=== PATIENT | male | born 1940 | race Caucasian/White ===

== ENCOUNTER 2017-08-22 16:16 | Observation (INO) | payer MEDICARE, OTHER ==
[~2017-08-22 16:16] MED LIST: NS 0.9% 1000 ML* 1,000 ML IV SCH
[2017-08-22] MEDS ORDERED: Buffered Lidocaine 0.9% SYRIN* 5 ML/SYR SYRINGE INTRADERM ONE (16:46)
--- NOTE | 2017-08-22 17:23 | HP ---
CC: Dr. Arcenio Olmstead* DATE OF ADMISSION: 08/22/2017. HISTORY OF PRESENT ILLNESS: Mr. 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 Mr. Olmstead is diabetic and has been followed by Dr. Olmstead because of decreased renal function. His serum creatinine has been in the vicinity of 5. The patient is been considered as candidate for either peritoneal dialysis or renal transplantation. About four days ago, he went to [facility] complaining of acute left flank and abdominal pain. The impression was that the pain was musculoskeletal. He was discharged home on pain medication. His serum creatinine, however, was noted to have progressed to 7.7. The patient was then evaluated by Dr. Olmstead today. He ordered a noncontrast CT of the abdomen and pelvis which showed left hydronephrosis and proximal hydroureter with a 7 mm calculus in the proximal left ureter at the level of L4. Because of that finding and the acute elevation of his serum creatinine, the patient is admitted for urgent placement of a left ureteral stent. PAST MEDICAL HISTORY, SYSTEM REVIEW AND MEDICATIONS: The patient is diabetic and is maintained on Metformin 500 mg three times per day, Indapamide 2.5 mg daily, Actos 45 mg daily, Glyburide 6 mg twice a day. He has a history of hypertension and hyperlipidemia. He was recently evaluated by Dr. Alok Rosenberg, vacuum technician in [facility]. He had a nuclear stress test which was reported as being normal. I am including the copies of his evaluation in his records. The patient denies any voiding symptoms, having nocturia once or twice, the frequency about every two to three hours. He reports having adequate urinary stream and no feeling of incomplete bladder emptying. He denies any episodes of gross hematuria or urinary tract infections. ALLERGIES: He denies any allergies to medications. PHYSICAL EXAMINATION GENERAL: Pale looking, moderately overweight, white male who is in no acute pain. VITAL SIGNS: Blood pressure 120/76, pulse 73. LUNGS: Clear. HEART: Regular and rhythmic, no murmurs. ABDOMEN: It is soft, there is tenderness in the left flank and the left upper quadrant. The rest of the abdominal exam is normal. LABORATORY DATA: Urine analysis shows +3 blood, negative otherwise. IMPRESSION: 1. 7 mm obstructing calculus in the proximal left ureter with worsening of the renal function. 2. Diabetic nephropathy with end-stage renal disease. 3. Hypertension. 4. Hyperlipidemia. PLAN: Cystoscopy and the urgent placement of left ureteral stent today. I discussed the above plans with the patient and his family. They understand that the procedure is temporary to relieve the obstruction. He will need definitive treatment of the stone at a later date. [id number]/[facility] #: [id number] TAVO
[2017-08-22] MEDS ORDERED: Famotidine IV* 10 MG/ML 2 ML (20 mg) ONE (19:15)
[2017-08-22] MEDS ORDERED: cefTRIAXone(*) 1 GM ADVAN ONE (19:15)
[2017-08-22] MEDS ORDERED: cefTRIAXone VIAL(*) 1,000 MG in NS 0.9% 50 ML* 50 ML IVPB ONE (19:30)
[2017-08-22] MEDS ORDERED: Famotidine IV* 10 MG/ML 2 ML (20 mg) IV ONE (19:30)
[2017-08-22] MEDS: NS 0.9% 1000 ML* 1,000 ML IV SCH ×3 (19:39→22:20)
[2017-08-22] MEDS ORDERED: Iohexol 180 (CONTRAST) 10 ML SDV IV ONE (20:28)
[2017-08-22] MEDS ORDERED: fentaNYL* 50 MCG/ML 2 ML VIAL (100 MCG VIAL) ONE (20:37)
[2017-08-22] MEDS ORDERED: Midazolam* 1 MG/ML 5 ML VIAL (5 MG) ONE (20:38)
[2017-08-22] MEDS ORDERED: KETAMINE HCL* 50 MG/ML 10 ML VIAL ONE (20:38)
[2017-08-22] MEDS ORDERED: PROCHLORPERAZINE INJ 5 MG/ML 2 ML VIAL IV PRN (21:04)
[2017-08-22] MEDS ORDERED: fentaNYL* 50 MCG/ML 2 ML VIAL (100 MCG VIAL) IV PRN (21:04)
[2017-08-22] MEDS ORDERED: Propofol* 10 MG/ML 20 ML BTL IV PUSH ONE (21:09)
[2017-08-22] MEDS ORDERED: Lidocaine 2% PF * 5 ML VIAL ONE (21:09)
[2017-08-22] MEDS ORDERED: PROCHLORPERAZINE INJ 5 MG/ML 2 ML VIAL ONE (21:09)
[2017-08-22] MEDS ORDERED: Ondansetron INJ* 2 MG/ML VIAL ONE (21:09)
[2017-08-23 05:02] LABS: BUN/Creatinine Ratio 8.2 (8-20); Calcium 6.6 mg/dL (8.6-10.3); EGFR African American 8.8 (>60); EGFR Non-African American 6.8 (>60); Potassium 4.2 mmol/L (3.5-5.0)
[2017-08-23] MEDS: NS 0.9% 1000 ML* 1,000 ML IV SCH (05:55)
--- NOTE | 2017-08-23 07:41 | RAD ---
INDICATION: Left ureteral calculus COMPARISONS: CT dated August 22, 2017 TECHNIQUE: Fluoroscopy was provided for a retrograde pyelogram and stent placement. Total fluoroscopy time is: 7 seconds FINDINGS: Spot images demonstrate contrast in the renal collecting system. A ureteral stent is noted. IMPRESSION: FLUOROSCOPY WAS PROVIDED FOR A RETROGRADE PYELOGRAM AND STENT PLACEMENT CPT II Codes: 6045F
[2017-08-23 16:09] LABS: BUN/Creatinine Ratio 8.2 (8-20); Calcium 6.7 mg/dL (8.6-10.3); Potassium 4.6 mmol/L (3.5-5.0)
[2017-08-23 16:24] VITALS: BP 129/63
--- NOTE | 2017-08-23 19:27 | OP ---
CC: Dr. Olmstead OPERATIVE REPORT: DATE OF OPERATION: 08/22/17 DATE OF : 44 SURGEON: Manish Jaimes MD ANESTHESIOLOGIST: Marcelo Mazariegos MD ANESTHESIA: IV sedation with MAC. PRE-OP DIAGNOSES: 1. Left ureteral calculus. 2. Left hydronephrosis due to left ureteral calculus. 3. Chronic renal failure. POST-OP DIAGNOSES: 1. Left ureteral calculus. 2. Left hydronephrosis due to left ureteral calculus. 3. Chronic renal failure. OPERATIVE PROCEDURE: 1. Cystoscopy, left retrograde pyelography. 2. Placement of left ureteral stent (6-American). INDICATIONS: Mr. Olmstead is a 76-year-old white male, who has diabetic nephropathy with a decreased renal function and baseline creatinine of 5. He started having left flank pain about 3 days ago an d the creatinine went up to 7.6. CT of the abdomen and pelvis showed a 7-mm calculus at the left ur eteropelvic junction associated with left hydronephrosis. Because of the above history and finding, the patient is taken to the OR for urgent placement of lef t ureteral stent. PATHOLOGY AT CYSTOSCOPY: The penile and bulbar urethrae looked normal. The prostatic urethra measu red about 2.5 cm in length and there was moderate obstruction by an elevated bladder neck. Examination of the bladder showed normal mucosa. There were no suspicious bladder lesions seen. No calculi or diverticula were noted. The ureteral orifices looked normal. Upon left retrograde pyel ography, there was moderate proximal hydroureteronephrosis. Following placement of the stent, there was a brisk hydronephrotic drip of concentrated urine coming from the left kidney. DESCRIPTION OF PROCEDURE: Under intravenous sedation with the patient in the lithotomy position and after proper scrubbing and draping, cystoscopy was performed. The bladder was carefully inspected and the above findings were noted. A flexible-tip guidewire was then introduced into the left orifice and positioned in the area of the renal pelvis. A 5-American open-ended catheter was then fed on top of the guidewire and positioned i n the proximal ureter. Retrograde pyelography was performed demonstrating the above pathology. A size 6-American stent was then placed over the guidewire with the proximal end coiling in renal pelv is and the distal end coiling inside the bladder. There was a prompt drainage of contrast from the kidney. The cystoscope was removed and a size 16-American Lindo catheter was passed inside the bladder and the balloon inflated with 10 cc of water. The Lindo catheter was placed for monitoring of the urine ou tput and to check for postobstructive diuresis. The patient tolerated the procedure well and left the operating room in good condition. The plan is to obtain a KUB later on. I will decide on the definite treatment of the stone. [id number]/[facility] #: [id number]
[2017-08-23] MEDS ORDERED: ATORVASTATIN 80 MG PO SCH (21:00)
[2017-08-24] MEDS ORDERED: DILTIAZEM HCL 420 MG PO SCH (09:00)
[2017-08-24] MEDS ORDERED: Calcium Citrate TAB* 200 MG PO SCH (09:00)
--- NOTE | 2017-08-24 16:22 | RAD ---
Indication: Stent insertion. Hand Laminator film of the abdomen demonstrates left ureteral stent placement. Contrast is noted throughout the colon. IMPRESSION: Left ureteral stent in appropriate position.
--- NOTE | 2017-08-25 06:20 | DS ---
CC: Dr. Arcenio Olmstead; Dr. Manish Jaimes; Dr. Eula Mantilla* DISCHARGE SUMMARY: DATE OF ADMISSION: 08/22/17 DATE OF DISCHARGE: 08/23/17 ADMISSION DIAGNOSES: 1. Left hydronephrosis. 2. Left nephrolithiasis. 3. Diabetic nephropathy with end-stage renal disease. 4. Hypertension. 5. Hyperlipidemia. DISCHARGE DIAGNOSES: 1. Left hydronephrosis. 2. Left nephrolithiasis. 3. Diabetic nephropathy with end-stage renal disease. 4. Hypertension. 5. Hyperlipidemia. HOSPITAL COURSE: The patient is a 76-year-old gentleman, who presented to the [facility] with a chief complaint of abdominal pain and blood in his urine. The patient was found to have left hydronephrosis and 7-mm calculus in the proximal left ureter. The patient was sent for emergent cystoscopy and had left ureteral stent placed. The patient was monitored over the next day. He is improved dramatically. His pain was resolved. His urine was clear. His kidney function improved slightly and he was stable to go home and follow up with his PCP, account executive healthcare and urologist as an outpatient within the next week. PHYSICAL EXAMINATION: On the date of discharge, well-developed, well-nourished gentleman, sitting up in bed, in no acute distress. Vital Signs: Temperature 98.8 degrees, heart rate 93 beats per minute, respiratory rate 16 breaths per minute, pulse ox 98%, blood pressure 129/63. HEENT: Normocephalic, atraumatic. Pupils equal, round, and reactive to light. Moist mucous membranes. Neck: Supple. No JVD, bruits, palpable thyroid or lymphadenopathy. Chest: Clear to auscultation and percussion bilaterally. Cardiovascular Exam: S1 and S2 appreciated. Abdominal Exam: Positive bowel sounds in all 4 quadrants, soft, nontender, nondistended. Extremities: No cyanosis, clubbing, or edema. +2 pulses bilaterally. Neuro: Alert and oriented x3. Moves all extremities. Skin: No rashes or abnormalities. STUDIES DONE WHILE IN THE HOSPITAL: Retrograde pyelogram, 08/22/17, impression: Fluoroscopy was provided for retrograde pyelogram and stent placement. CT of the abdomen and pelvis, 08/22/17, impression: Left hydronephrosis and hydroureter, 7-mm calculi in the proximal left ureter at proximal L4, cholelithiasis with biliary duct. Abdominal x-ray, 08/23/17, impression: Ureteral stent probably in position. DISCHARGE MEDICATIONS: 1. Pioglitazone 45 mg daily. 2. Tradjenta 5 mg p.o. daily. 3. Lozol 2.5 mg daily. 4. Glyburide 6 mg daily. 5. Enalapril 1 tablet twice daily. 6. Diltiazem CD 120 mg daily. 7. Calcium citrate 400 mg daily. 8. Atorvastatin 80 mg at bedtime. Please note, the patient was on metformin with his kidney function, I have discontinued it and told him to discuss with Dr. Olmstead. He has been on it for some time and I assumed that the patient was still on it because he had no adverse consequences despite his renal function. DISCHARGE PLAN: He will be discharged to home and follow up with his PCP, his Nephrology, and urologist in 1 week. TIME SPENT: Over 45 minutes were spent on this discharge, more than 25 minutes of which was spent in direct [id number] contact with the patient in evaluation , physical exam, counseling, and coordination of care. [id number]/[facility] #: [id number] MTDKristen
== END 2017-08-23 18:15 | disposition home or self-care (01) ==
LOC: SSU 16:19
PROVIDERS: ADMIT Internal Medicine; ATTEND Urology
PROC: BT1FZZZ Fluoroscopy of Left Kidney, Ureter and Bladder (ICD-10-PCS; 2017-08-22)
PROC: 0WHR8YZ Insertion of Other Device into Genitourinary Tract, Via Natural or Artificial Opening Endoscopic (ICD-10-PCS; 2017-08-22)
PROC: 0T778DZ Dilation of Left Ureter with Intraluminal Device, Via Natural or Artificial Opening Endoscopic (ICD-10-PCS; principal; 2017-08-22 20:00)
DX: N13.2 Hydronephrosis with renal and ureteral calculous obstruction (principal); I12.0 Hypertensive chronic kidney disease with stage 5 chronic kidney disease or end stage renal disease; E11.22 Type 2 diabetes mellitus with diabetic chronic kidney disease; N18.6 End stage renal disease; E78.5 Hyperlipidemia, unspecified; Z79.899 Other long term (current) drug therapy
CPT/HCPCS: 36415; 74000; 74420; 80048; 96374; 96375; A9270-GY; C1876; G0378; J0696; J0780; J2250; J2405; J2704; J3010

== ENCOUNTER 2018-01-19 04:39 | Emergency (ER) | payer MEDICARE, OTHER ==
--- OUTSIDE RECORDS SUMMARY | 2018-01-19 04:58 | XMS REPORT ---
:1940 External Reference #:[id number] Author Organization [employer] Address [address] [address] Phone [phone] Care Team Providers Name Role Phone Jamal Larkin M.D. Care Team Information Special Education Administrator Unavailable Payers Type Date Identification Numbers Payment Provider Subscriber Medicare Primary Policy Number: [id number] Medicare Wilton Olmstead PayID: [id number] [address] [place] [address] [facility] Part [facility] Policy Number: [id number] For Life Wilton Olmstead PayID: [id number] [address] [place] [address] Problems Description No Information Social History Type Date Description Comments Smoking Patient is a former smoker Allergies, Adverse Reactions, Alerts Date Description Reaction Status Severity Comments 12/29/2017 Vicodin active 12/28/2017 NKDA inactive Medications Medication Date Status Form Strength Qnty SIG Indications Ordering Provider Calcitriol / Active Capsules 0.25mcg 1 by mouth Unknown 0000 every day Actos / Active Tablets 45mg 1 by mouth Unknown 0000 every day Diltiazem / Active Caps ER 420mg 1 by mouth Unknown HCL ER 0000 24HR every day Enalapril / Active Tablets 20mg 2 by mouth Unknown Maleate 0000 every day Glyburide / Active Tablets 6mg take one Unknown 0000 tablet by mouth twice daily before breakfast and dinner Indapamide / Active Tablets 2.5mg 1 tab daily Unknown 0000 Lipitor / Active Tablets 80mg 1 by mouth Unknown 0000 every night at bedtime Tradjenta / Active Tablets 5mg 1 by mouth Unknown 0000 every day Humalog / Active Solution 100Unit/ML Unknown 0000 Citracal / Active Tablets 400mg daily Unknown Plus 0000 Feraheme / Hx Solution 510mg/17ML 17 Unknown 0000 milliliters iv x1, repeat in 1 week x1 Ferrous / Hx Tablets 325(65Fe) take 1 tablet Unknown Sulfate 0000 mg once daily. Metformin / Hx Tablets 500mg 2 by mouth Unknown HCL 0000 twice a day Norvasc / Hx Tablets 2.5mg 1 by mouth Unknown 0000 every day Vital Signs Date Vital Result Comment 12/29/2017 Height 69 inches 5'9" Weight 187.00 lb Heart Rate 76 /min BP Systolic 136 mmHg BP Diastolic 72 mmHg Respiratory Rate 16 /min Body Temperature 97.8 F BMI (Body Mass Index) 27.6 kg/m2 Results Description No Information Procedures Description No Information Encounters Type Date Location Provider CPT E/M Dx [facility] Jamal Larkin M.D. 73413 N20.0 2:54p Hospitalists N17.9 N18.5 Plan of Care Future Appointment(s):02/09/2018 10:30 am - Naun Yan MD at [facility]01/19/2018 1:00 pm - JAI Gonzalez at [facility]02/01/2018 7:30 am - Naun Yan MD at [facility]12/29/2017 - Naun Yan MDN18.6 End stage renal diseaseFollow up:operating room
--- OUTSIDE RECORDS SUMMARY | 2018-01-19 04:59 | XMS REPORT ---
:1940 External Reference #:[id number] [facility], Address [address] [place] [address] Phone [phone] Care Team Providers Name Role Phone Eula Mantilla M.D. Primary Care Physician Unavailable Payers Type Date Identification Numbers Payment Provider Subscriber Medicare Primary Policy Number: [id number] Medicare [place] PayID: [id number] [address] [place] [address] Commercial Policy Number: [id number] [facility] Claims [place] PayID: [id number] [address] [place] [address] Problems Date Description Provider Status Onset: 02/24/2012 Impacted cerumen Arcenio Mayfield MD Active Onset: 11/28/2013 Tibialis tendinitis Terry Noonan DPM Active Onset: 03/02/2017 Chronic kidney disease Eula Mantilla M.D. Active Onset: 03/02/2017 Type II diabetes mellitus Eula Mantilla M.D. Active uncontrolled Onset: 03/02/2017 Essential hypertension Eula Mantilla M.D. 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 Cigarette Use Former Cigarette Smoker Smokeless Tobacco Never Used Smokeless Tobacco ETOH Use Denies alcohol use ETOH Use Has consumed alcohol in the past Recreational Drug Use Denies Drug Use Smoking 02/24/2012 Patient is a former smoker Quit age 28 Allergies, Adverse Reactions, Alerts Date Description Reaction Status Severity Comments 04/04/2009 NKDA active Medications Medication Date Status Form Strength Qnty SIG Indications Ordering Provider BD Pen 11/17/ Active Misc 32G X 4 mm 300uni 3-4 daily Veronique A Needle/Afsaneh/U 2017 ts injections Galarza, ltra Fine/32G 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 2014 Tablet Daily MD Angela Freestyle 06/30/ Active Strips 100uni three times Roe V. Lite Test 2014 ts a day checks MD Yazmin Millerstyle 06/30/ Active Misc 100uni three times Veronique A Lancets 2014 a day checks SHAHBAZ Galarza Glynase 05/19/ Active Tablets 6mg 60tabs 1 tab by Roe Villeda 2014 mouth twice Zyg, a day with MD meals Diltiazem HCL / Active Caps ER 420mg once daily Unknown ER 0000 24HR Lipitor / Active Tablets 80mg one daily Unknown 0000 qhs Enalapril / Active Tablets 20mg 2 times per Unknown Maleate 0000 day Indapamide / Active Tablets 2.5mg one tablet Unknown 0000 daily Actos / Active Tablets 45mg 90tabs Take One Roe V. Tablet By Angela, Mouth Every Day Citracal / Active Tablets 315-250mg- 1 by mouth Unknown Maximum 0000 Unit every day Calcitriol 04/20/ Hx Capsules 0.25mcg 60caps 2 tablets by Roe Villeda 2016 - mouth every Gayathrimont, 05/02/ day 2016 Glynase 09/14/ Hx Tablets 1.5mg 90tabs 1 tab po Q Roe Villeda 2015 - PM with the Angela, 03/01/ supper meal 2016 Amlodipine 05/24/ Hx Tablets 5mg 30tabs 1 by mouth Reo Villeda Besylate 2015 - every day Angela, 03/01/ MD Madrigal Micronized 05/19/ Hx Tablets 6mg 180tab 1 tablet Roe Villeda Glyburide 2014 - s twice a day Angela, 03/01/ with meals 2017 Voltaren 04/18/ Hx Gel 1% 5tubes apply as 726.10 Lalo Vital 2009 - directed Perez, 04/18/ M.D. 2008 Voltaren 04/18/ Hx Gel 1% 100gra apply 2 Lalo Vital 2008 - ms grams to Chris, M.D. 2010 3x/day Metformin HCL /00/ Hx Tablets 500mg 270tab 2 tablets by [facility]oe [facility]. 0000 [facility] 2017 1 tablet by mouth in the PM Glynase /00/ Hx Tablets 6mg Unknown - 2014 Viagra /00/ Hx Tablets 100mg prn Unknown - 2014 Doxycycline / Hx Caps DR 100mg 20caps 1/2 po qd Unknown Hyclate 0000 - Part 2014 Glyburide // Hx Unknown - 2014 Micronized / Hx Tablets 6mg 180tab 1 tablet Roe V. Glyburide 0000 - s twice a day [facility], 05/19/ with meals 2014 Iron 00/ Hx Tablets 325(65Fe) 1 by mouth Unknown 0000 - mg once a day 2016 Medications Administered in Office Medication Date Status Form Strength Qnty SIG Indications Ordering Provider Mike Administered Injection Veronique A Injection 017 SHAHBAZ Galarza Denosumab, 1 MG Immunizations CPT Code Status Date Vaccine Lot # [id number] Given 08/04/2017 Hepatitis B Vaccine Adult [id number] Given 06/29/2017 Hepatitis B Vaccine Adult [id number] Given 03/02/2017 Tetanus, Diphtheria Toxoids/Acellular Pertussis [id number] Vaccine 7 Or > Vital Signs Date Vital Result Comment 11/14/2017 Weight 191.00 lb Weight in kg's 86.638 BMI (Body Mass Index) 29.9 kg/m2 BP Systolic 130 mmHg BP Diastolic 58 mmHg Heart Rate 62 /min Height 67 inches 5'7" Height in cm's 170.2 cm O2 % BldC Oximetry 8.4 % done in office today 07/15/2017 Weight 194.25 lb Weight in kg's 88.112 BMI (Body Mass Index) 30.4 kg/m2 BP Systolic 148 mmHg BP Diastolic 70 mmHg Height 67 inches 5'7" Height in cm's 170.2 cm Hemoglobin A1C 6.8% done in office today 06/02/2017 Weight 193.25 lb Weight in kg's 87.658 BMI (Body Mass Index) 30.3 kg/m2 BP Systolic 132 mmHg BP Diastolic 60 mmHg Heart Rate 79 /min Respiratory Rate 18 /min Height 67 inches 5'7" Height in cm's 170.2 cm O2 % BldC Oximetry 96 % 05/30/2017 Weight 187.00 lb Weight in kg's 84.823 BMI (Body Mass Index) 29.3 kg/m2 BP Systolic 150 mmHg BP Diastolic 80 mmHg Heart Rate 82 /min Respiratory Rate 20 /min Height 67 inches 5'7" Height in cm's 170.2 cm 04/05/2017 Weight 193.00 lb Weight in kg's 87.545 BMI (Body Mass Index) 30.2 kg/m2 BP Systolic 134 mmHg BP Diastolic 72 mmHg Heart Rate 83 /min Respiratory Rate 18 /min Height 67 inches 5'7" Height in cm's 170.2 cm O2 % BldC Oximetry 98 % Hemoglobin A1C 7.5% done in office today 03/24/2017 Weight 190.00 lb Weight in kg's 86.184 BMI (Body Mass Index) 28.9 kg/m2 BP Systolic 146 mmHg BP Diastolic 58 mmHg Heart Rate 92 /min Respiratory Rate 16 /min Height 68 inches 5'8" Height in cm's 172.7 cm O2 % BldC Oximetry 98 % Ra 03/02/2017 Weight 187.00 lb Weight in kg's 84.823 BMI (Body Mass Index) 28.4 kg/m2 BP Systolic 142 mmHg BP Diastolic 60 mmHg Heart Rate 90 /min Body Temperature 98.3 F Respiratory Rate 18 /min Height 68 inches 5'8" Height in cm's 172.7 cm O2 % BldC Oximetry 100 % 12/13/2016 Weight 192.00 lb Weight in kg's 87.091 BMI (Body Mass Index) 29.2 kg/m2 BP Systolic 138 mmHg BP Diastolic 66 mmHg Heart Rate 88 /min Body Temperature 97.4 F Respiratory Rate 18 /min Height 68 inches 5'8" Height in cm's 172.7 cm O2 % BldC Oximetry 98 % 09/14/2016 Weight 194.50 lb Weight in kg's 88.225 BMI (Body Mass Index) 30.0 kg/m2 BP Systolic 128 mmHg BP Diastolic 78 mmHg Heart Rate 76 /min Height 67.5 inches 5'7.50" Height in cm's 171.4 cm Hemoglobin A1C 7.2% 05/24/2016 Weight 195.50 lb Weight in kg's 88.679 BMI (Body Mass Index) 30.2 kg/m2 BP Systolic 126 mmHg BP Diastolic 74 mmHg Heart Rate 76 /min Height 67.5 inches 5'7.50" Height in cm's 171.4 cm Hemoglobin A1C 7.2% 01/20/2016 Weight 193.38 lb Weight in kg's 87.715 BMI (Body Mass Index) 30.3 kg/m2 BP Systolic 128 mmHg BP Diastolic 73 mmHg Heart Rate 72 /min Height 67 inches 5'7" Height in cm's 170.2 cm Hemoglobin A1C 7.0% 09/04/2015 Weight 193.00 lb Weight in kg's 87.545 BMI (Body Mass Index) 29.8 kg/m2 BP Systolic 128 mmHg BP Diastolic 62 mmHg Heart Rate 68 /min Height 67.5 inches 5'7.50" Height in cm's 171.4 cm Hemoglobin A1C 7.2% 06/05/2015 Hemoglobin A1C 8.5% 06/05/2015 Weight 193.00 lb Weight in kg's 87.545 BP Systolic 124 mmHg BP Diastolic 62 mmHg Heart Rate 88 /min 04/02/2015 Weight 198.00 lb Weight in kg's 89.813 BMI (Body Mass Index) 30.6 kg/m2 BP Systolic 142 mmHg BP Diastolic 64 mmHg Heart Rate 80 /min Height 67.5 inches 5'7.50" actual Height in cm's 171.4 cm Hemoglobin A1C 8.4% 10/28/2014 BP Systolic 136 mmHg BP Diastolic 66 mmHg Heart Rate 72 /min Respiratory Rate 20 /min 11/28/2013 BP Systolic 138 mmHg BP Diastolic 60 mmHg Heart Rate 66 /min Respiratory Rate 15 /min 03/05/2013 Weight 204.00 lb Weight in kg's 92.534 BP Systolic 128 mmHg BP Diastolic 78 mmHg Heart Rate 72 /min Respiratory Rate 16 /min 02/24/2012 Weight 196.00 lb Weight in kg's 88.906 BP Systolic 132 mmHg BP Diastolic 64 mmHg Heart Rate 62 /min Respiratory Rate 18 /min Results Description No Information Procedures Date CPT Code Description Status 06/16/2017 58337 Colonoscopy W/Biopsy Completed 04/20/2017 68759 Electrocardiogram Complete With At Least 12 Completed Leads/Interprt/Report 04/05/2017 91059 Chemotherpy Admin Subcutaneous/Im Non-Hormonal Completed Anti-Neoplastic 06/05/2015 04242 Collection Of Capillary Blood Specimen (Finger, Heel, Completed Ear Stick) 04/02/2015 67586 Collection Of Capillary Blood Specimen (Finger, Heel, Completed Ear Stick) 10/28/2014 51149 Comprehensive Audiogram (29134 And 54216 Combined) Completed 10/28/2014 46430 Tympanometry & Reflex Threshold Measurements Completed 03/05/2013 02862 Removal Impacted Cerumen One/Both Ears Using Completed Instrumentation 04/04/2009 83606 X-Ray Shoulder Complete Completed Encounters Type Date Location Provider CPT E/M Dx Office Visit 07/15/2017 [facility] Roe Miller, 61798 E11.65 9:00a & Endocrinology N18.9 I10 Office Visit 06/02/2017 1:40p [facility] Eula Mantilla M.D. 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 54531 N18.9 E11.65 I10 M81.0 Z23 Office Visit 12/13/2016 10:40a [facility] SUZANNE Blunt 07448 N18.9 M94.0 S27.802A Office Visit 09/14/2016 3:45p [facility] Roe Miller, 67781 E11.65 Diabetes & Endocrinology I10 Office Visit 05/24/2016 2:45p [facility] Roe Miller, 48796 E11.65 Diabetes & Endocrinology E78.0 E66.09 Z68.30 Z71.3 Office Visit 01/20/2016 1:30p [facility] Roe Miller, 11664 E11.65 Diabetes & Endocrinology E78.0 I10 Office Visit 09/04/2015 12:45p [facility] Roe Miller, 56968 E11.65 Diabetes & Endocrinology E78.0 I10 Office Visit 06/05/2015 11:45a [facility] Roe Miller, 24527 250.02 Diabetes & Endocrinology Office Visit 04/02/2015 9:00a [facility] Roe Miller, 72187 250.02 Diabetes & Endocrinology 278.00 Office Visit 10/28/2014 2:45p [facility] [address] 389.9 380.4 Office Visit 11/28/2013 2:30p [facility] Terry Noonan, 12221 726.72 Specialists-Podiatry DPM Office Visit 02/24/2012 2:30p [facility] Arcenio Loredo 07986 380.4 Chaparro GLOVER Office Visit 06/06/2009 3:00p [facility] Lalo Perez, 11288 726.10 Specialists MStephie Office Visit 04/18/2009 3:00p [facility] Lalo Perez, 91591 726.10 Specialists Angelita Office Visit 04/04/2009 3:15p [facility] Lalo Perez, 36581 726.10 Specialists MStephie Plan of Care Future Appointment(s):02/14/2018 3:15 pm - Roe Miller MD at [facility] Diabetes & Hrbottcqebstu40/28/2018 1:00 pm - Apc Nurse Schedule at [facility]14/2017 - Roe Miller MDE11.65 Type 2 diabetes mellitus with hyperglycemiaComments:- I recommended starting Humalog insulin 8 units at the supper meal- I reviewed the use of a Humalogpen and the injection process- I will continue his oral diabetic medication regimen- He wants to continue his metformin understanding the contraindication with his kidney function and risk of lactic acidosis- I reviewed a diabetic diet with him at length and the need for regular exercise to avoid weight gain- I encouraged regular follow up with his eye doctors for routine eye screening- I encourageddaily self-foot checks for the develop of blisters, ulcers, or foot lesions- I asked to be called with any recurrent hyperglycemia or hypoglycemia - I asked him to get me sugars to review in the next 5-7 days- I will see him back in 3-4 [id number] Essential (primary) hypertensionComments:- Goal for blood pressure is < zx=826/80
[2018-01-19] MEDS ORDERED: Morphine INJ* 10 MG/ML 1 ML CARPUJECT IV ONE (05:06)
[2018-01-19] MEDS ORDERED: Ondansetron INJ* 2 MG/ML VIAL IV ONE (05:06)
[2018-01-19] MEDS ORDERED: NS 0.9% 1000 ML* 1,000 ML IV ONE (05:06)
[2018-01-19 05:31] LABS: ABS Basophils 0.1 10^3/ul (0-0.2); ABS Eosinophils 0.2 10^3/ul (0-0.6); ABS Lymphocytes 0.9 10^3/ul (1.0-4.8); ABS Monocytes 0.5 10^3/ul (0-0.8); ABS Neutrophils 8.2 10^3/ul (1.5-7.7); ABS Nucleated RBC 0 10^3/ul; Eosinophil % 1.8 % (0-6); Hematocrit 24 % (42-52); Hemoglobin 8.1 g/dl (14.0-18.0); Mean Corpuscular HGB Conc 34 g/dl (31-36); Mean Corpuscular Hemoglobin 32 pg (27-31); Mean Corpuscular Volume 96 fL (80-94); Mean Platelet Volume 7.9 um3 (7.4-10.4); Nucleated Red Blood Cells % 0; Platelet Count 160 10^3/ul (150-450); Red Blood Count 2.52 10^6/ul (4.0-5.4); Red Cell Distribution Width 14 % (10.5-15); White Blood Count 9.8 10^3/ul (3.5-10.8)
[2018-01-19 05:42] LABS: INR 0.96 (0.77-1.02)
[2018-01-19 05:47] LABS: EGFR Non-African American 7.8 (>60)
--- NOTE | 2018-01-19 06:45 | ED ---
Nuria Brunson Rebecca, scribed for Agnes Schmitt MD on 01/19/18 at 0504 . Abdominal Pain/Male - HPI Summary HPI Summary: Pt is a 77 y/o M who presents to ED c/o RLQ abdominal pain. Sx began this morning at approximately 0030 and have been constant and gradually worsening since onset. Pain is currently moderate, ranked 4/10 and does not radiate to the back. Sx aggravated and alleviated by nothing. Denies fever, decreased appetite, vomiting and dizziness. Last BM at 0300 which was smaller than usual and slightly dark than baseline. PMHx kidney stones - current pain is not similar to the pain associated with kidney stones. - History of Current Complaint Chief Complaint: EDAbdPain Stated Complaint: LOWER ABD PAIN Time Seen by Provider: 01/19/18 04:49 Hx Obtained From: Patient Onset/Duration: Lasting Hours, Still Present Severity Currently: Moderate Pain Intensity: 4 Pain Scale Used: 0-10 Numeric Location: Discrete At: RLQ Radiates: No Aggravating Factor(s): Nothing Alleviating Factor(s): Nothing Associated Signs And Symptoms: Negative: Fever, Decreased Appetite, Vomiting - Allergies/Home Medications Allergies/Adverse Reactions: Allergies Allergy/AdvReac Type Severity Reaction Status Date / Time hydrocodone Allergy Nausea And Verified 01/19/18 04:52 Vomiting PMH/Surg Hx/FS Hx/Imm Hx Endocrine/Hematology History: Reports: Hx Diabetes, Hx Anemia - iron deficiency , had an infusion Cardiovascular History: Reports: Hx Coronary Artery Disease, Hx Hypertension History: Reports: Hx Chronic Renal Failure - N stage renal disease, Hx Kidney Stones, Other Problems/Disorders - on renal transplant list, not active, needs cardiac cath first Denies: Hx Dialysis - waiting for dialysis or tranplant Sensory History: Reports: Hx Contacts or Glasses - glasses Denies: Hx Hearing Aid Opthamlomology History: Reports: Hx Contacts or Glasses - glasses - Surgical History Surgery Procedure, Year, and Place: tonsillectomy at age 8. cystoscopy, left stent jul 2017 - [facility] [place] Hx Anesthesia Reactions: No Infectious Disease History: No Infectious Disease History: Denies: Traveled Outside the [place] in Last 30 Days - Family History Known Family History: Negative: Hypertension - Social History Alcohol Use: Rare Substance Use Type: Reports: None Smoking Status (MU): Former Smoker Type: Cigarettes Amount Used/How Often: 1 ppd for 11 yrs Have You Smoked in the Last Year: No Review of Systems Negative: Fever Positive: Abdominal Pain, Other - NEG: decreased appetite. Negative: Vomiting Neurological: Other - NEG: Dizziness All Other Systems Reviewed And Are Negative: Yes Physical Exam - Summary Physical Exam Summary: ~ VITAL SIGNS: Reviewed. GENERAL: ~Patient is a well-developed and nourished male who is lying comfortable in the stretcher. Patient is not in any acute respiratory distress. HEAD AND FACE: No signs of trauma. No ecchymosis, hematomas or skull depressions. No sinus tenderness. EYES: PERRLA, EOMI x 2, No injected conjunctiva, no nystagmus. EARS: Hearing grossly intact. Ear canals and tympanic membranes are within normal limits. MOUTH: Oropharynx within normal limits. NECK: Supple, trachea is midline, no adenopathy, no JVD, no carotid bruit, no c- spine tenderness, neck with full ROM. CHEST: Symmetric, no tenderness at palpation LUNGS: Clear to auscultation bilaterally. No wheezing or crackles. CVS: Regular rate and rhythm, S1 and S2 present, no murmurs or gallops appreciated. ABDOMEN: Soft, RLQ tenderness. No signs of distention. No rebound no guarding, and no masses palpated. Bowel sounds are normal. EXTREMITIES: FROM in all major joints, no edema, no cyanosis or clubbing. NEURO: Alert and oriented x 3. No acute neurological deficits. Speech is normal and follows commands. SKIN: Dry and warm. Pale. RECTAL: Rectum is empty. No hemorrhoids or masses palpated. Stool is dark brown and was sent for Hemoccult. Triage Information Reviewed: Yes Vital Signs On Initial Exam: Initial Vitals Temp Pulse Resp BP Pulse Ox 97.8 F 74 16 127/54 99 01/19/18 04:40 01/19/18 04:40 01/19/18 04:40 01/19/18 04:40 01/19/18 04:40 Vital Signs Reviewed: Yes Diagnostics - Vital Signs Vital Signs Temp Pulse Resp BP Pulse Ox 01/19/18 04:40 97.8 F 74 16 127/54 99 - Laboratory Result Diagrams: 01/19/18 05:12 01/19/18 05:12 Lab Statement: Any lab studies that have been ordered have been reviewed, and results considered in the medical decision making process. Abdominal Pain Fem Course/Dx - Course Assessment/Plan: Pt is a 77 y/o M who presents to ED c/o constant and worsening RLQ abdominal pain since this morning at approximately 0030. Pain is currently moderate, ranked 4/10 and does not radiate to the back. Denies fever, decreased appetite, vomiting and dizziness. Last BM at 0300 which was smaller than usual and slightly dark than baseline. PMHx kidney stones - current pain is not similar to the pain associated with kidney stones. In the ED course, pt was given morphine, zofran and fluids. Bloodwork was done and a hemocult sent. Pt will be signed out to Dr. Swenson, pending disposition, awaiting CT Abd/Pel and UA. Allergy noted. - Diagnoses Provider Diagnoses: Abdominal pain Discharge - Sign-Out/Discharge Documenting (check all that apply): Sign-Out Patient Signing out patient TO: Terry Swenson - Awaiting CT Abd/Pel and UA - Discharge Plan Condition: Stable Referrals: Eula Mantilla MD [Primary Care Provider] - The documentation as recorded by the Nuria barcenas Rebecca accurately reflects the service I personally performed and the decisions made by , Agnes Schmitt MD.
[2018-01-19] MEDS ORDERED: Metoclopramide IV* 5 MG/ML 2 ML VIAL IV ONE (07:50)
--- NOTE | 2018-01-19 08:09 | RAD ---
CLINICAL HISTORY: Right-sided abdominal pain COMPARISON: Similar CT examination August 22, 2017 TECHNIQUE: Noncontrast CT examination of the abdomen and pelvis from the lung bases through the initial tuberosities. FINDINGS: VISUALIZED LUNG BASES: The visualized lung bases are grossly clear. There is no pleural effusion. ABDOMEN AND PELVIS: Evaluation of the solid organs and vasculature is limited without intravenous contrast. The liver, spleen, pancreas and adrenal glands are grossly normal in appearance. The gallbladder is normal. Bilaterally there are no renal calculi or other suspicious renal masses. There is a mild degree of bilateral perinephric stranding, more severe on the right than the left. There is a slight degree of hydronephrosis appreciated on the right side is not seen in the left. The proximal right ureter is top normal in diameter measuring 8 mm in width. There are no calcifications seen in either ureter or in the urinary bladder. The oral contrast has progressed only as far as the proximal small bowel which prevents more thorough evaluation of the distal small bowel and colon. The small and large bowel are not distended. The normal-appearing appendix with gas in the lumen is identified in the right lower quadrant (axial image 55 and coronal image 41) measuring 6 mm in diameter. There is no definite periappendiceal inflammatory changes characteristic of appendicitis, early or otherwise. There are diverticula beginning at the cecum and running throughout the length of the colon. There is no definite focal bowel wall thickening characteristic of focal diverticulitis. There is no free air in the abdomen or drainable fluid collection around the colon. There is no gross retroperitoneal or mesenteric lymphadenopathy. The pelvic viscera is normal in appearance. The abdominal aorta and iliac arteries are normal in course and diameter. Degenerative changes include multilevel loss of intervertebral disc height involving the lower thoracic and lumbar spine.There are no sinister bone lesions. IMPRESSION: 1. There is a very mild degree of right-sided hydronephrosis but no renal calculi or other obstructive entities are identified. Potentially this appearance could be due to prior recent passage of a renal stone. 2. Normal-appearing appendix. 3. Cecal diverticulosis without definite bowel wall thickening to indicate acute diverticulitis.
[2018-01-19 09:54] LABS: Urine Appearance Clear; Urine Blood 3+ (Negative); Urine Color Straw; Urine Ketones Negative (Negative); Urine Protein 1+(30 mg/dL) (Negative); Urine Specific Gravity 1.011 (1.010-1.030); Urine Urobilinogen Negative (Negative)
--- NOTE | 2018-01-19 11:38 | ED ---
Mariela Brunson Thomas, scribed for Terry Swenson MD on 01/19/18 at 1031 . Progress - Progress Note Progress Note: The patient is a sign out from Dr. Schmitt at shift change, pending CT Abd/Pel CT Abd/Pel Interpreted by radiologist. Impression: 1. There is a very mild degree of right-sided hydronephrosis but no renal calculi or other obstructive entities are identified. Potentially this appearance could be due to prior recent passage of a renal stone. 2. Normal-appearing appendix. 3. Cecal diverticulosis without definite bowel wall thickening to indicate acute diverticulitis. Dr. Swenson has reviewed this report. Course/Dx - Course Course Of Treatment: Mr. Olmstead was feeling much better when I saw him. Initially he got nauseated after the PO contrast for the CT which has happened to him before. It is unclear whether he just passed a stone or if it was missed. I spoke with Dr. Olmstead secondary to his CRF and he felt that the patient could go home and F/u with Dr. Olmstead early next week. I gave him pain medications and nausea medications. - Diagnoses Provider Diagnoses: Flank pain Discharge - Sign-Out/Discharge Documenting (check all that apply): Discharge, Receiving Sign-Out Receiving patient FROM: Agnes Schmitt - Discharge Plan Condition: Stable Disposition: HOME Prescriptions: Ondansetron ODT TAB* [Zofran Odt TAB*] 4 mg PO Q6H PRN #20 tab.odt PRN Reason: Nausea/Vomiting oxyCODONE/Acetamin 5/325 MG* [Percocet 5/325 TAB*] 1 tab PO Q6H PRN #20 tab MDD 4 PRN Reason: Pain Patient Education Materials: Flank Pain (ED) Referrals: Arcenio Olmstead MD [Medical Doctor] - 6 Days Additional Instructions: Follow up with Dr. Olmstead early next week. Return to the emergency department for any new or worsening symptoms. - Billing Disposition and Condition Condition: STABLE Disposition: HOME The documentation as recorded by the Mariela barcenas Thomas accurately reflects the service I personally performed and the decisions made by me, Terry Swenson MD.
[2018-01-19 11:48] VITALS: BP 126/40
== END 2018-01-19 11:44 | disposition home or self-care (01) ==
LOC: ED 04:39
DX: R10.84 Generalized abdominal pain (principal)
CPT/HCPCS: 36415; 74176; 80053; 81003; 81015; 82150; 82270; 83605; 83690; 83735; 85025; 85610; 85730; 86140; 86850; 86900; 86901; 87086; 96374; 96375; 99282; J2270; J2405; J2765

== ENCOUNTER 2018-02-01 06:00 | Day surgery (SDC) | payer MEDICARE, OTHER ==
--- NOTE | 2018-01-24 18:12 | HP ---
CC: Dr. Olmstead * PREOPERATIVE HISTORY AND PHYSICAL: DATE OF ADMISSION: 02/01/18 This patient is scheduled for same-day surgery admission by Dr. Yan on 02/01/18. ATTENDING SURGEON: Dr. Naun Yan * (dictated by Deborah García NP). CHIEF COMPLAINT: End-stage renal disease. HISTORY OF PRESENT ILLNESS: The patient is a pleasant 77-year-old male referred to Dr. Yan by Dr. Olmstead for peritoneal dialysis catheter placement. The patient has a history of chronic kidney disease secondary to diabetic nephropathy. Unfortunately, his renal function is deteriorating, his serum creatinine on 01/23/18 was 7.8. He has researched both hemodialysis and peritoneal dialysis; his is familiar with peritoneal dialysis, so he has opted for placement of peritoneal dialysis catheter. Dr. Yan has examined the patient and has recommended laparoscopic peritoneal dialysis catheter placement as a same day surgery, he has described the nature of the surgical procedure, the relevant risks and benefits and today, I reviewed the typical postoperative care and recovery. The patient has had a chance to ask questions and stated that he understands the information and is satisfied with the answers given to his questions. He will sign surgical consent on the day of surgery. PAST MEDICAL HISTORY: 1. Type 2 diabetes. 2. Hypertension. 3. Hyperlipidemia. 4. Chronic kidney disease. PAST SURGICAL HISTORY: 1. Cystoscopy and ureteral stent and laser lithotripsy for obstructing left ureteral calculi, August 2017. 2. Tonsillectomy, age 8. MEDICATIONS: 1. Diltiazem 420 mg daily. 2. Lipitor 80 mg daily. 3. Glynase 6 mg b.i.d. 4. Enalapril 20 mg b.i.d. 5. Actos 45 mg daily. 6. Indapamide 2.5 mg daily. 7. Tradjenta 5 mg daily. 8. Calcitriol 0.25 mcg daily. 9. Humalog insulin 6 units daily at dinner. 10. Citracal 400 mg daily. 11. Zofran 4 mg p.r.n. nausea. 12. Percocet 5/325 mg 1 tablet q.4 p.r.n. pain, which he is not currently using. ALLERGIES: There is a question of unspecified reaction to VICODIN, he does tolerate OXYCODONE. FAMILY HISTORY: No known anesthesia complications, bleeding tendencies or clotting disorders. Both parents had diabetes. The patient's father had a history of hypertension and heart disease. SOCIAL HISTORY: He is ; he quit smoking in 1969. 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 He denies the use of substances. REVIEW OF SYSTEMS: Constitutional: He was in the [facility] emergency room, 01/19/18, complaining of right-sided flank and lower abdominal pain; he underwent CAT scan of the abdomen and pelvis, which revealed mild right -sided hydronephrosis, but no evidence of obstruction or calculi and no evidence of appendicitis. He was treated with morphine and was discharged and has been essentially pain free since then. He denies any current fever or chills or change in his weight. Endocrine: Type 2 diabetes. Blood sugar in the morning today was 83 and is in the 130s at bedtime. No thyroid disease. Hematologic: No easy bruising or bleeding. No history of blood transfusions. Respiratory: He reports the onset of postnasal drip last evening, but denies any chronic cough or dyspnea on exertion. Cardiovascular: No anginal chest pain or palpitations. He underwent a nuclear stress test in [place], which he states was essentially normal; if he proceeds to kidney transplant, he will require cardiac catheterization. Gastrointestinal: No nausea, vomiting, chronic diarrhea, or constipation. No GI bleeding. Genitourinary: He is still able to urinate and denies any dysuria, frequency, or urgency. Musculoskeletal: Denies any pain. Neurologic: No headache or blurred vision. No areas of focal weakness or numbness. General: No history of anesthesia complications. No history of deep vein thrombosis or pulmonary embolism. PHYSICAL EXAMINATION GENERAL SURVEY: The patient is a 77-year-old male, well developed, well nourished, in no acute distress. VITAL SIGNS: Height 69 inches, weight 194 pounds, body mass index 28.6. Blood pressure 140/74, pulse 74 and regular, respiratory rate 16, temperature 97.2 tympanic. HEENT: Benign. NECK: Supple. No cervical lymphadenopathy. LUNGS: Breath sounds bilaterally clear and equal. HEART: Regular rate and rhythm. No murmurs or rubs appreciated. ABDOMEN: Active bowel sounds. Soft, nondistended, minimally tender with mild rebound in the right lower quadrant. No guarding. No obvious masses, organomegaly, or evidence of ventral hernia. BACK: No CVA tenderness. GENITALIA EXAM: Deferred. RECTAL EXAM: Deferred. EXTREMITIES: Warm, mild bilateral ankle edema, no pitting. NEUROLOGIC: Alert and oriented x3. Steady gait. SKIN: Sallow, warm and dry. IMPRESSION: End-stage renal disease secondary to diabetic nephropathy. PLAN: Same-day surgery admission to Dr. Yan's service for laparoscopic placement of peritoneal dialysis catheter, on 02/01/18. NIA GARCÍA, CATHODE BUILDER [id number]/[facility] #: [id number] TAVO
[~2018-02-01 06:00] MED LIST changes: +Buffered Lidocaine 0.9% SYRIN* 5 ML/SYR SYRINGE INTRADERM ONE; -NS 0.9% 1000 ML* 1,000 ML IV SCH
[2018-02-01] MEDS ORDERED: ceFAZolin 2 GM PREMIX (*) 2 GM/50 ML BAG IVPB ONE (07:07)
[2018-02-01] MEDS ORDERED: Bupivacaine 0.25% SDV* 30 ML ONE ×2 (07:12→08:20)
[2018-02-01] MEDS ORDERED: Heparin DIALYSIS ONLY(*) 1,000 UNITS/ML VIAL ONE (07:13)
[2018-02-01] MEDS ORDERED: fentaNYL* 50 MCG/ML 2 ML VIAL (100 MCG VIAL) ONE (07:30)
[2018-02-01] MEDS ORDERED: Propofol* 10 MG/ML 20 ML BTL IV PUSH ONE (07:30)
[2018-02-01] MEDS ORDERED: Midazolam* 1 MG/ML 2 ML VIAL (2 MG) ONE (07:31)
[2018-02-01] MEDS ORDERED: Atracurium* 10 MG/ML 10 ML VIAL ONE (07:31)
[2018-02-01] MEDS ORDERED: oxyCODONE TAB* 5 MG TAB PO PRN (08:04)
[2018-02-01] MEDS ORDERED: fentaNYL* 50 MCG/ML 2 ML VIAL (100 MCG VIAL) IV PRN (08:04)
[2018-02-01] MEDS ORDERED: Naloxone* 0.4 MG/ML 1 ML VIAL IV PRN (08:04)
[2018-02-01] MEDS ORDERED: Ondansetron INJ* 2 MG/ML VIAL IV PRN (08:04)
[2018-02-01] MEDS ORDERED: Ondansetron INJ* 2 MG/ML VIAL ONE (08:22)
[2018-02-01] MEDS ORDERED: Neostigmine Methylsulfate* 1 MG/ML 10 ML VIAL (1 mg/ml) ONE (08:24)
[2018-02-01] MEDS ORDERED: Glycopyrrolate IV* 0.2 MG/ML 1 ML VIAL ONE ×2 (08:24→08:35)
[2018-02-01 09:39] VITALS: BP 130/53
--- NOTE | 2018-02-12 00:18 | OP ---
CC: Arcenio Olmstead MD; [facility] OPERATIVE REPORT: DATE OF OPERATION: 02/01/18 DATE OF : 44 SURGEON: Dr. Yan. AREA SUPERVISOR: Deborah García NP ANESTHESIA: General anesthesia. ANESTHESIOLOGIST: Dr. Spencer. PRE-OP DIAGNOSIS: End-stage renal disease. POST-OP DIAGNOSIS: End-stage renal disease. PROCEDURE: 1. Laparoscopic placement of peritoneal dialysis catheter. 2. Omentopexy. ESTIMATED BLOOD LOSS: Minimal blood loss. FLUIDS: Minimal crystalloid fluids given. SPECIMEN: None. DESCRIPTION OF PROCEDURE: The patient was identified in the preoperative area, abdomen marked, check ed at belt line. The patient wanted the peritoneal dialysis catheter above his belt line. He was ma rked accordingly and brought to the operating room, placed on the operating table in a supine positio n. Preoperative antibiotics were given. Sequential devices were placed on bilateral lower extremiti es. General anesthesia was induced. The patient's abdomen was prepped and draped in a standard surg ical fashion. A time-out was performed. A subcostal incision was made just below the midclavicular line on the left. This was deepened down to the anterior fascia, which was elevated and a Veress needle was inserted into the abdominal cavity which was then allowed to insufflate to a pressure of 15 mmHg. The patient tolerated the insufflati on well. An 8-mm port was the placed through this and the camera was inserted through this and no ev idence of injury from the trocar insertion or from the Veress needle. The abdomen showed no lesions, no fluids. Additional trocars were placed in the left lower quadrant, this was a 5 mm trocar. The patient was placed in a Trendelenburg positioning. A 5-mm trocar was tunneled through the left r ectus muscle and the previously placed 52 cm curled cath type peritoneal dialysis catheter was then b rought out through this incision ensuring that the cuffs were just in the musculature of the rectus m uscle. The curled portion of the tubing was then placed in to the pelvis. Next, the catheter was tunneled appropriately to the planned spot on the abdominal wall. We then primo ked this up to dialysate and fluid filled and released and then was evacuated easily as well. Next, an omentopexy was performed with a separate incision at the left upper quadrant at the omentum with a 0 Polysorb suture ____ abdominal wall. Next, the abdomen was allowed to collapse. Trocars were removed under direct vision. Anterior fasci a at the left upper quadrant port site was reapproximated with 0 Polysorb suture. Wounds were irriga starr and all wounds were reapproximated with 4-0 Monocryl sutures followed by Steri-Strips and sterile dressing. We placed gauze over the peritoneal dialysis tubing along with paper tape. The patient t olerated the procedure well, was woken up in the OR, and transferred to the PACU in stable condition. [id number]/[facility] #: [id number]
== END 2018-02-01 10:05 | disposition home or self-care (01) ==
LOC: OR 06:00
PROVIDERS: ATTEND Surgery
DX: N18.6 End stage renal disease (principal); E11.21 Type 2 diabetes mellitus with diabetic nephropathy; Z79.4 Long term (current) use of insulin; I12.9 Hypertensive chronic kidney disease with stage 1 through stage 4 chronic kidney disease, or unspecified chronic kidney disease; E78.5 Hyperlipidemia, unspecified; Z87.891 Personal history of nicotine dependence
CPT/HCPCS: J0690; J1644; J2250; J2405; J2704; J2710; J3010

== ENCOUNTER 2018-03-26 22:27 | Emergency (ER) | payer MEDICARE, OTHER ==
[2018-03-27 01:27] VITALS: BP 133/74
--- NOTE | 2018-03-27 03:05 | ED ---
Nuria Brunson Rebecca, scribed for Agnes Schmitt MD on 03/27/18 at 0113 . Complex/Multi-Sys Presentation - HPI Summary HPI Summary: Pt is a 77 y/o M who presents to ED with a cut peritoneal dialysis catheter. Pt states that his was changing the dressing tonight when she accidentally cut the catheter. WARRANT SERVER, the pt placed the emergency clip provided by the surgeon. Pt is not in any pain. He is not currently on dialysis, beginning next month. Catheter was placed by Dr. Yan in January. - History Of Current Complaint Chief Complaint: EDGeneral Time Seen by Provider: 03/27/18 00:57 Hx Obtained From: Patient Onset/Duration: Other - Cut tonight Severity Currently: None Location: Negative Aggravating Factor(s): Nothing Alleviating Factor(s): Emergency clip placed Associated Signs And Symptoms: Positive: Other - Cut peritoneal dialysis catheter - Allergies/Home Medications Allergies/Adverse Reactions: Allergies Allergy/AdvReac Type Severity Reaction Status Date / Time hydrocodone Allergy Nausea And Verified 02/20/18 12:16 Vomiting PMH/Surg Hx/FS Hx/Imm Hx Endocrine/Hematology History: Reports: Hx Diabetes, Hx Anemia - iron deficiency , had an infusion Cardiovascular History: Reports: Hx Coronary Artery Disease, Hx Hypertension Denies: Other Cardiovascular Problems/Disorders Respiratory History: Reports: Hx Sleep Apnea - not diagnosed History: Reports: Hx Chronic Renal Failure - N stage renal disease, Hx Kidney Stones, Other Problems/Disorders - on renal transplant list, not active, needs cardiac cath first Denies: Hx Dialysis - waiting for dialysis or tranplant Sensory History: Reports: Hx Cataracts - left, Hx Contacts or Glasses - glasses Denies: Hx Hearing Aid Opthamlomology History: Reports: Hx Cataracts - left, Hx Contacts or Glasses - glasses - Surgical History Surgery Procedure, Year, and Place: tonsillectomy at age 8. cystoscopy, left stent jul [place] [facility] [place] Anesthesia Reactions: No Infectious Disease History: No Infectious Disease History: Denies: Traveled Outside the [place] in Last 30 Days - Family History Known Family History: Negative: Hypertension - Social History Alcohol Use: None Substance Use Type: Reports: None Smoking Status (MU): Former Smoker Type: Cigarettes Amount Used/How Often: 1 ppd for 11 yrs Have You Smoked in the Last Year: No Review of Systems Positive: Other - Peritoneal dialysis catheter cut WARRANT SERVER. Negative: Fever Positive: Other - NEGATIVE: Pain All Other Systems Reviewed And Are Negative: Yes Physical Exam - Summary Physical Exam Summary: VITAL SIGNS: Reviewed. GENERAL: ~Patient is a well-developed and nourished male who is lying comfortable in the stretcher. Patient is not in any acute respiratory distress. HEAD AND FACE: No signs of trauma. No ecchymosis, hematomas or skull depressions. No sinus tenderness. EYES: PERRLA, EOMI x 2, No injected conjunctiva, no nystagmus. EARS: Hearing grossly intact. Ear canals and tympanic membranes are within normal limits. MOUTH: Oropharynx within normal limits. NECK: Supple, trachea is midline, no adenopathy, no JVD, no carotid bruit, no c- spine tenderness, neck with full ROM. CHEST: Symmetric, no tenderness at palpation LUNGS: Clear to auscultation bilaterally. No wheezing or crackles. CVS: Regular rate and rhythm, S1 and S2 present, no murmurs or gallops appreciated. ABDOMEN: Peritoneal dialysis catheter that was cut very proximal to the abdominal wall that was clipped by him. Soft, non-tender. No signs of distention. No rebound no guarding, and no masses palpated. Bowel sounds are normal. EXTREMITIES: FROM in all major joints, no edema, no cyanosis or clubbing. NEURO: Alert and oriented x 3. No acute neurological deficits. Speech is normal and follows commands. SKIN: Dry and warm Triage Information Reviewed: Yes Vital Signs On Initial Exam: Initial Vitals Temp Pulse Resp BP Pulse Ox 97.8 F 65 18 146/69 100 03/26/18 22:30 03/26/18 22:30 03/26/18 22:30 03/26/18 22:30 03/26/18 22:30 Vital Signs Reviewed: Yes Diagnostics - Vital Signs Vital Signs Temp Pulse Resp BP Pulse Ox 03/27/18 00:16 60 121/38 98 03/26/18 22:30 97.8 F 65 18 146/69 100 - Laboratory Lab Statement: Any lab studies that have been ordered have been reviewed, and results considered in the medical decision making process. Complex Multi-Symp Course/Dx Assessment/Plan: Pt is a 77 y/o M who presents to ED with a cut peritoneal dialysis catheter which occured while his was changing the dressing tonight. WARRANT SERVER, the pt placed the emergency clip provided by the surgeon. He is not currently on dialysis, beginning next month. Catheter was placed by Dr. Yan in January. Pt will be D/C to home with Dx of peritoneal dialysis catheter dysfunction with a follow up with his surgeon, Dr. Yan, tomorrow. Pt understands and agrees. Allergy noted. - Diagnoses Provider Diagnoses: Peritoneal dialysis catheter dysfunction Discharge - Sign-Out/Discharge Documenting (check all that apply): Discharge/Admit/Transfer - Discharge - Discharge Plan Condition: Stable Disposition: HOME Patient Education Materials: Peritoneal Dialysis Catheter Care (ED) Referrals: Naun Yan MD [Medical Doctor] - 03/28/18 Additional Instructions: RETURN TO ED FOR ANY NEW OR WORSENING SYMPTOMS. The documentation as recorded by the Nuria barcenas Rebecca accurately reflects the service I personally performed and the decisions made by , Agnes Schmitt MD.
== END 2018-03-27 01:26 | disposition home or self-care (01) ==
LOC: ED 22:27
DX: T85.691A Other mechanical complication of intraperitoneal dialysis catheter, initial encounter (principal); E11.9 Type 2 diabetes mellitus without complications; Z79.4 Long term (current) use of insulin; D50.9 Iron deficiency anemia, unspecified; I25.10 Atherosclerotic heart disease of native coronary artery without angina pectoris; I10 Essential (primary) hypertension; N18.6 End stage renal disease; Z99.2 Dependence on renal dialysis; Z88.5 Allergy status to narcotic agent; Z87.891 Personal history of nicotine dependence
CPT/HCPCS: 99282

== ENCOUNTER 2018-03-28 12:22 | Emergency (ER) | payer MEDICARE, OTHER ==
[2018-03-28] MEDS ORDERED: Vancomycin(*) 1,000 MG in NS 0.9% 250 ML* 250 ML IVPB ONE (14:46)
[2018-03-28 17:46] VITALS: BP 134/51
--- NOTE | 2018-03-28 17:51 | ED ---
Juve Brunson Tiffany, scribed for Jose Luis Naylor on 03/28/18 at 1412 . GI/ HPI - HPI Summary HPI Summary: 77 y/o M [facility] s/p accidentally cutting his peritoneal dialysis catheter two nights ago. Denies abdominal pain, fever. Pt in renal failure. Dr. Yan placed catheter 2 months ago. Pt to start dialysis in [address] Yan told him to come to ER today so he can repair the tube. - History of Current Complaint Chief Complaint: EDGeneral Time Seen by Provider: 03/28/18 14:00 Stated Complaint: DIALYSIS CATH CUT-SENT BY Hx Obtained From: Patient Onset/Duration: Started Days Ago - 2 days, Still Present Associated Signs and Symptoms: Positive: Negative - abd pain, fever - Additional Pertinent History Primary Care Physician: NI - Allergy/Home Medications Allergies/Adverse Reactions: Allergies Allergy/AdvReac Type Severity Reaction Status Date / Time No Known Allergies Allergy Verified 03/28/18 14:17 PMH/Surg Hx/FS Hx/Imm Hx Previously Healthy: No Endocrine/Hematology History: Reports: Hx Diabetes, Hx Anemia - iron deficiency , had an infusion Cardiovascular History: Reports: Hx Coronary Artery Disease, Hx Hypertension Denies: Other Cardiovascular Problems/Disorders Respiratory History: Reports: Hx Sleep Apnea - not diagnosed History: Reports: Hx Chronic Renal Failure - N stage renal disease, Hx Kidney Stones, Other Problems/Disorders - on renal transplant list, not active, needs cardiac cath first Denies: Hx Dialysis - waiting for dialysis or tranplant Sensory History: Reports: Hx Cataracts - left, Hx Contacts or Glasses - glasses Denies: Hx Hearing Aid Opthamlomology History: Reports: Hx Cataracts - left, Hx Contacts or Glasses - glasses - Surgical History Surgery Procedure, Year, and Place: tonsillectomy at age 8. [place] [facility] [place]est[place] Reactions: No Infectious Disease History: No Infectious Disease History: Denies: Traveled Outside the [place] in Last 30 Days - Family History Known Family History: Negative: Hypertension - Social History Alcohol Use: None Hx Substance Use: No Substance Use Type: Reports: None Hx Tobacco Use: Yes Smoking Status (MU): Former Smoker Type: Cigarettes Amount Used/How Often: 1 ppd for 11 yrs Have You Smoked in the Last Year: No Review of Systems Negative: Fever Negative: Abdominal Pain Positive: other - accidentally cut his parentineal dialysis catheter two nights ago All Other Systems Reviewed And Are Negative: Yes Physical Exam - Summary Physical Exam Summary: Appearance: Well appearing, no pain distress Skin: warm, dry, reflects adequate perfusion Head/face: normal Eyes: EOMI, FRANCISCO J ENT: normal Neck: supple, non-tender Respiratory: CTA, breath sounds present Cardiovascular: RRR, pulses symmetrical Abdomen: parentineal dialysis catheter in LLQ Bowel: present Musculoskeletal: normal, strength/ROM intact Triage Information Reviewed: Yes Vital Signs On Initial Exam: Initial Vitals Temp Pulse Resp BP Pulse Ox 98.1 F 68 16 144/74 99 03/28/18 12:32 03/28/18 12:32 03/28/18 12:32 03/28/18 12:32 03/28/18 12:32 Vital Signs Reviewed: Yes Diagnostics - Vital Signs Vital Signs Temp Pulse Resp BP Pulse Ox 03/28/18 12:32 98.1 F 68 16 144/74 99 - Laboratory Lab Statement: Any lab studies that have been ordered have been reviewed, and results considered in the medical decision making process. GIGU Course/Dx - Course Course Of Treatment: 77 y/o M presents to [facility] s/p accidentally cutting his peritoneal dialysis catheter two nights ago. Dr. Yan came down to see patient and fixed it. Pt will be discharged home with prescription for Doxycycline. - Diagnoses Provider Diagnoses: Peritoneal dialysis catheter dysfunction - Physician Notifications Discussed Care Of Patient With: Naun Yan Time Discussed With Above Provider: 14:45 Instructed by Provider To: Other - Dr. Yan, surgery, says he will come evaluate patient, requests IV to be put in. Discharge - Sign-Out/Discharge Documenting (check all that apply): Discharge/Admit/Transfer - Discharge Plan Condition: Stable Disposition: HOME Prescriptions: DOXYcycline CAP(*) [DOXYcycline 100MG CAP(*)] 100 mg PO DAILY #5 cap Referrals: Eula Mantilla MD [Primary Care Provider] - Naun Yan MD [Medical Doctor] - 1 Week Additional Instructions: Follow up with Dr. Yan in 1 week. Return to the Emergency Department for any new or worsening symptoms. - Billing Disposition and Condition Condition: STABLE Disposition: HOME The documentation as recorded by the Juve barcenas Tiffany accurately reflects the service I personally performed and the decisions made by me, Jose Luis Naylor.
== END 2018-03-28 17:44 | disposition home or self-care (01) ==
LOC: ED 12:22
DX: T85.611A Breakdown (mechanical) of intraperitoneal dialysis catheter, initial encounter (principal); N19 Unspecified kidney failure; Z87.891 Personal history of nicotine dependence
CPT/HCPCS: 96365; 96366; 99282; J3370

== ENCOUNTER 2021-04-12 19:03 | Observation (INO) ==
[2021-04-12] MEDS ORDERED: NS 0.9% 1000 ml BAG 1,000 ML IV ONE (19:12)
[2021-04-12 19:31] LABS: ABS Basophils 0.1 10^3/ul (0-0.2); ABS Eosinophils 0.2 10^3/ul (0-0.6); ABS Lymphocytes 0.8 10^3/ul (1.0-4.8); ABS Monocytes 0.7 10^3/ul (0-0.8); ABS Neutrophils 5.4 10^3/ul (1.5-7.7); Eosinophil % 2.3 %; Hematocrit 38 % (42-52); Hemoglobin 12.8 g/dL (14.0-18.0); Mean Corpuscular HGB Conc 34 g/dL (31-36); Mean Corpuscular Hemoglobin 32 pg (27-31); Mean Corpuscular Volume 95 fL (80-94); Mean Platelet Volume 8.5 fL (7.4-10.4); Platelet Count 152 10^3/uL (150-450); Red Blood Count 3.95 10^6 /uL (4.18-5.48); Red Cell Distribution Width 14 % (10-15); White Blood Count 7.1 10^3/uL (3.5-10.8)
[2021-04-12 19:48] LABS: ALT 28 U/L (7-52); AST 23 U/L (13-39); Albumin 3.7 g/dL (3.2-5.2); Albumin/Globulin Ratio 1.6 (1-3); Alkaline Phosphatase 55 U/L (35-149); Anion Gap 10 mmol/L (2-11); Blood Urea Nitrogen 65 mg/dL (6-24); CO2 Carbon Dioxide 27 mmol/L (22-32); Calcium 8.5 mg/dL (8.6-10.3); Chloride 102 mmol/L (101-111); Cholesterol 135 mg/dL; EGFR African American 12.3 (>60); EGFR Non-African American 10.1 (>60); Globulin 2.3 g/dL (2-4); Glucose 202 mg/dL (70-100); HDL Cholesterol 24.4 mg/dL; LDL Cholesterol 56 mg/dL; Potassium 3.3 mmol/L (3.5-5.0); Sodium 139 mmol/L (135-145); Triglycerides 275 mg/dL
[2021-04-12 19:52] LABS: Activated Partial Thrombo Time 29.1 seconds (26.0-38.0); INR 1.11 (0.82-1.09)
[2021-04-12 19:53] LABS: Troponin I 0.03 ng/mL (<0.03)
[2021-04-12] MEDS ORDERED: Potassium Chloride LIQUID 20 MEQ/15 ML LIQUID PO ONE (22:21)
[2021-04-12 22:51] LABS: TSH Ultra Thyroid Stim Horm 0.92 mcIU/mL (0.34-5.60)
[2021-04-12 22:53] LABS: Free T4 0.95 ng/dL (0.61-1.12)
[2021-04-12 23:27] LABS: Urine Appearance Clear; Urine Bilirubin Negative (Negative); Urine Blood 2+ (Negative); Urine Color Straw; Urine Glucose 3+(>=500 mg/dL) (Negative); Urine Ketones Negative (Negative); Urine Nitrite Negative (Negative); Urine Protein Negative (Negative); Urine Specific Gravity 1.007 (1.002-1.030); Urine Urobilinogen Negative (Negative)
[2021-04-12 23:29] LABS: Urine Bacteria Absent (Absent); Urine Red Blood Cell Trace(0-2/hpf) (Absent); Urine Squamous Epithelial Cell Present (Absent); Urine White Blood Cell Trace(0-5/hpf) (Absent)
[2021-04-13] MEDS ORDERED: Dextrose 50% Syringe 50 ml 25 GM/50 ML SYRINGE IV PUSH PRN (00:48)
[2021-04-13] MEDS ORDERED: Potassium Chlor 20 meq TAB.ER PO SCH (09:00)
[2021-04-13] MEDS ORDERED: Insulin GLARGINE 100 un/ml 10 ml VIAL SUBCUT SCH (09:00)
[2021-04-13 15:35] VITALS: BP 142/63
== END 2021-04-13 16:18 | disposition home or self-care (01) ==
LOC: ED 19:03 → MEDTELE 19:03
PROVIDERS: ADMIT Internal Medicine; ATTEND Internal Medicine

== ENCOUNTER 2023-06-08 14:25 | Observation (INO) ==
[2023-06-08 14:42] LABS: ABS Basophils 0.1 10^3/uL (0.0-0.1); ABS Eosinophils 0.1 10^3/uL (0.0-0.5); ABS Lymphocytes 0.8 10^3/uL (1.0-4.8); ABS Monocytes 0.4 10^3/uL (0.0-1.1); ABS Neutrophils 6.8 10^3/uL (1.5-7.6); Eosinophil % 0.7 %; Hematocrit 34.2 % (38-53); Hemoglobin 11.8 g/dL (13.2-16.3); Lymphocyte % 10.3 %; Mean Corpuscular Hemoglobin 33.1 pg (27-33); Mean Corpuscular Hgb Conc 34.5 g/dL (31-36); Mean Corpuscular Volume 95.9 fL (80-97); Mean Platelet Volume 8.4 fL (7.5-11.2); Platelet Count 166 10^3/uL (150-450); Red Blood Count 3.56 10^6/uL (4.06-5.63); Red Cell Distribution Width 13.6 % (12-17); White Blood Count 8.2 10^3/uL (3.6-10.2)
[2023-06-08 14:51] LABS: Activated Partial Thrombo Time 26.2 seconds (26.0-38.0); INR 1.13 (0.88-1.18)
[2023-06-08 15:04] LABS: ALT 18 U/L (7-52); AST 20 U/L (13-39); Albumin 3.8 g/dL (3.2-5.2); Albumin/Globulin Ratio 1.5 (1-3); Alkaline Phosphatase 44 U/L (35-149); Anion Gap 8 mmol/L (2-16); Blood Urea Nitrogen 39 mg/dL (6-24); CO2 Carbon Dioxide 23 mmol/L (22-32); Calcium 8.7 mg/dL (8.6-10.3); Chloride 109 mmol/L (101-111); Cholesterol 252 mg/dL; Globulin 2.6 g/dL (2-4); Glucose 364 mg/dL (70-100); HDL Cholesterol 43.1 mg/dL; LDL Cholesterol 168 mg/dL; Potassium 4.5 mmol/L (3.5-5.0); Sodium 140 mmol/L (135-145); Total Protein 6.4 g/dL (6.4-8.9); Triglycerides 204 mg/dL; eGFR CKD-EPI 37.6 (>60)
[2023-06-08] MEDS ORDERED: CYCLOSPORINE MODIFIED 50 MG PO SCH (18:00)
[2023-06-08] MEDS ORDERED: Dextrose 50% Syringe 50 ml 25 GM/50 ML SYRINGE IV PUSH PRN (18:14)
[2023-06-08] MEDS: cycloSPORINE Modified 25mg CAP PO SCH (22:38)
[2023-06-08] MEDS: cycloSPORINE Modfied 100mg CAP PO SCH (22:39)
[2023-06-09 06:22] LABS: ABS Basophils 0.1 10^3/uL (0.0-0.1); ABS Eosinophils 0.2 10^3/uL (0.0-0.5); ABS Lymphocytes 0.9 10^3/uL (1.0-4.8); ABS Monocytes 0.7 10^3/uL (0.0-1.1); ABS Neutrophils 5.6 10^3/uL (1.5-7.6); Eosinophil % 2.2 %; Hematocrit 38.8 % (38-53); Hemoglobin 13.3 g/dL (13.2-16.3); Lymphocyte % 12.4 %; Mean Corpuscular Hemoglobin 32.9 pg (27-33); Mean Corpuscular Hgb Conc 34.3 g/dL (31-36); Mean Corpuscular Volume 95.9 fL (80-97); Mean Platelet Volume 8.2 fL (7.5-11.2); Nucleated Red Blood Cells % 0.1 /100 WBC (0.0-0.4); Platelet Count 159 10^3/uL (150-450); Red Blood Count 4.04 10^6/uL (4.06-5.63); Red Cell Distribution Width 14.1 % (12-17); White Blood Count 7.4 10^3/uL (3.6-10.2)
[2023-06-09 06:40] LABS: Calcium 8.9 mg/dL (8.6-10.3); Creatinine, Serum 1.51 mg/dL (0.67-1.17); Magnesium 1.9 mg/dL (1.9-2.7); Phosphorus 2.8 mg/dL (2.5-5.0); Potassium 3.7 mmol/L (3.5-5.0); eGFR CKD-EPI 46.4 (>60)
[2023-06-09] MEDS: cycloSPORINE Modified 25mg CAP PO SCH (09:56)
[2023-06-09] MEDS: cycloSPORINE Modfied 100mg CAP PO SCH (09:56)
[2023-06-09 13:12] VITALS: BP 162/87
== END 2023-06-09 14:15 | disposition home or self-care (01) ==
LOC: ED 14:25 → EDHOLD 14:25 → MEDTELE 20:20
PROVIDERS: ADMIT Internal Medicine; ATTEND Internal Medicine

== ENCOUNTER 2023-11-11 11:41 | Inpatient (IN) ==
[2023-11-11] MEDS ORDERED: NS 0.9% 500 ml BAG 500 ML IV SCH (13:00)
[2023-11-11 13:21] LABS: ABS Basophils 0.1 10^3/uL (0.0-0.1); ABS Eosinophils 0.1 10^3/uL (0.0-0.5); ABS Lymphocytes 0.5 10^3/uL (1.0-4.8); ABS Monocytes 0.3 10^3/uL (0.0-1.1); ABS Neutrophils 7.9 10^3/uL (1.5-7.6); ABS Nucleated RBC 0.01 10^3/ul; Eosinophil % 0.7 %; Hematocrit 35.7 % (38-53); Hemoglobin 11.9 g/dL (13.2-16.3); Lymphocyte % 5.5 %; Mean Corpuscular Hgb Conc 33.4 g/dL (31-36); Mean Corpuscular Volume 95.7 fL (80-97); Mean Platelet Volume 8.1 fL (7.5-11.2); Nucleated Red Blood Cells % 0.1 %/100WBC (0.0-0.8); Platelet Count 298 10^3/uL (150-450); Red Blood Count 3.73 10^6/uL (4.06-5.63); Red Cell Distribution Width 14.9 % (12-17); White Blood Count 8.9 10^3/uL (3.6-10.2)
[2023-11-11 14:05] LABS: Albumin 3.2 g/dL (3.2-5.2); Albumin/Globulin Ratio 1.1 (1-3); Calcium 8.7 mg/dL (8.6-10.3); Creatinine, Serum 1.38 mg/dL (0.67-1.17); Total Bilirubin 0.7 mg/dL (0.2-1.0); Total Protein 6.2 g/dL (6.4-8.9); eGFR CKD-EPI 51.4 (>60)
[2023-11-11 16:03] LABS: Urine Appearance Clear; Urine Bilirubin Negative (Negative); Urine Blood Negative (Negative); Urine Color Yellow; Urine Glucose Negative (Negative); Urine Ketones Negative (Negative); Urine Nitrite Negative (Negative); Urine Protein 1+(30 mg/dL) (Negative); Urine Specific Gravity 1.023 (1.002-1.030); Urine Urobilinogen Negative (Negative)
[2023-11-11 16:15] LABS: Urine Bacteria Absent (Absent); Urine Red Blood Cell Trace(0-2/hpf) (Absent); Urine White Blood Cell Trace(0-5/hpf) (Absent)
[2023-11-11] MEDS ORDERED: D5W 1000 ml BAG 1,000 ML IV SCH (22:00)
[2023-11-12] MEDS ORDERED: Dextrose 50% Syringe 50 ml 25 GM/50 ML SYRINGE IV PUSH PRN (00:52)
[2023-11-12] MEDS ORDERED: hydrALAZINE 20 mg/ml 1 ML Vial IV IV SLOW PU ONE (01:23)
[2023-11-12] MEDS ORDERED: hydrALAZINE 20 mg/ml 1 ML Vial IV ONE (01:25)
[2023-11-12 01:33] LABS: Activated Partial Thrombo Time 20.2 seconds (26.0-38.0); INR 1.15 (0.83-1.13)
[2023-11-12] MEDS ORDERED: D5W 1000 ml BAG 1,000 ML IV SCH (03:55)
[2023-11-12 04:01] LABS: C Reactive Protein 37.45 mg/L (<8.01)
[2023-11-12 04:15] LABS: Calcium 8.7 mg/dL (8.6-10.3); Creatinine, Serum 1.04 mg/dL (0.67-1.17); Potassium 3.5 mmol/L (3.5-5.0); eGFR CKD-EPI 72.1 (>60)
[2023-11-12 04:21] LABS: TSH Ultra Thyroid Stim Horm 1.29 mcIU/mL (0.34-5.60)
[2023-11-12 04:32] LABS: Folate 6.31 ng/mL (5.90-24.80)
[2023-11-12] MEDS ORDERED: Magnesium Hydroxide LIQ 30 ML UDC PO PRN (05:07)
[2023-11-12] MEDS: Heparin 5000 UNITS/ML 1 mL VIAL SUBCUT SCH ×3 (05:30→20:30)
[2023-11-12 07:21] LABS: ABS Eosinophils 0.1 10^3/uL (0.0-0.5); ABS Lymphocytes 0.6 10^3/uL (1.0-4.8); ABS Monocytes 0.6 10^3/uL (0.0-1.1); ABS Neutrophils 6.3 10^3/uL (1.5-7.6); ABS Nucleated RBC 0.01 10^3/ul; Eosinophil % 1.1 %; Hematocrit 34.3 % (38-53); Hemoglobin 11.4 g/dL (13.2-16.3); Lymphocyte % 7.6 %; Mean Corpuscular Hemoglobin 31.5 pg (27-33); Mean Corpuscular Hgb Conc 33.2 g/dL (31-36); Mean Corpuscular Volume 94.8 fL (80-97); Mean Platelet Volume 7.9 fL (7.5-11.2); Nucleated Red Blood Cells % 0.1 %/100WBC (0.0-0.8); Platelet Count 270 10^3/uL (150-450); Red Blood Count 3.62 10^6/uL (4.06-5.63); Red Cell Distribution Width 14.4 % (12-17); White Blood Count 7.6 10^3/uL (3.6-10.2)
[2023-11-12 08:11] LABS: Calcium 8.1 mg/dL (8.6-10.3); Creatinine, Serum 1.16 mg/dL (0.67-1.17); Potassium 3.3 mmol/L (3.5-5.0); eGFR CKD-EPI 63.3 (>60)
[2023-11-12] MEDS ORDERED: Insulin GLARGINE 100 un/ml 10 ml VIAL SUBCUT SCH (09:00)
[2023-11-12] MEDS ORDERED: FOOD SUPPLEMT LACTOSE REDUCED PO SCH (09:00)
[2023-11-12] MEDS ORDERED: KCL 20 MEQ/100 ML IVPREMIX 20 MEQ/100 ML BAG IV ONE (09:10)
[2023-11-12] MEDS: KCL 20 MEQ/100 ML IVPREMIX 20 MEQ/100 ML BAG IV SCH ×2 (09:42→11:50)
[2023-11-12 13:13] LABS: Calcium 8.2 mg/dL (8.6-10.3); Creatinine, Serum 1.14 mg/dL (0.67-1.17); Potassium 3.6 mmol/L (3.5-5.0); eGFR CKD-EPI 64.6 (>60)
[2023-11-12] MEDS: Famotidine IV 10 MG/ML 2 ml VIAL (20 mg) IV SLOW PU SCH (14:16)
[2023-11-12] MEDS ORDERED: Lactated Ringers 1000 ml BAG 1,000 ML IV ONE (14:28)
[2023-11-12] MEDS: NS 0.9% IV SCH (14:35)
[2023-11-12] MEDS: CYCLOSPORINE IV SCH (14:35)
[2023-11-12 15:09] LABS: Calcium 8.3 mg/dL (8.6-10.3); Creatinine, Serum 1.08 mg/dL (0.67-1.17); Phosphorus 1.9 mg/dL (2.5-5.0); Potassium 3.9 mmol/L (3.5-5.0); eGFR CKD-EPI 68.9 (>60)
[2023-11-12] MEDS: HYDROmorphone 0.5 MG/0.5 ML SYRINGE IV PRN (21:00)
[2023-11-13] MEDS: Heparin 5000 UNITS/ML 1 mL VIAL SUBCUT SCH ×3 (06:17→22:18)
[2023-11-13] MEDS: Levothyroxine 100 MCG/5 ML VIAL IV SCH (06:17)
[2023-11-13 06:39] LABS: Hematocrit 35.5 % (38-53); Hemoglobin 11.7 g/dL (13.2-16.3); Mean Corpuscular Volume 96.9 fL (80-97); Mean Platelet Volume 7.9 fL (7.5-11.2); Platelet Count 229 10^3/uL (150-450); Red Blood Count 3.67 10^6/uL (4.06-5.63); Red Cell Distribution Width 14.4 % (12-17); White Blood Count 6.9 10^3/uL (3.6-10.2)
[2023-11-13 06:57] LABS: Creatinine, Serum 1.04 mg/dL (0.67-1.17); Phosphorus 2.6 mg/dL (2.5-5.0); Potassium 4.1 mmol/L (3.5-5.0); eGFR CKD-EPI 72.1 (>60)
[2023-11-13] MEDS: CYCLOSPORINE IV SCH (09:59)
[2023-11-13] MEDS: NS 0.9% IV SCH (09:59)
[2023-11-13] MEDS: Famotidine IV 10 MG/ML 2 ml VIAL (20 mg) IV SLOW PU SCH (10:03)
[2023-11-13] MEDS: Insulin GLARGINE 100 un/ml 10 ml VIAL SUBCUT SCH (10:04)
[2023-11-13] MEDS ORDERED: Acetaminophen IV 1 GM/100ML 1,000 MG/100 ML BAG IV PRN (14:46)
[2023-11-13] MEDS ORDERED: Lactated Ringers 1000 ml BAG 1,000 ML IV ONE (16:28)
[2023-11-13] MEDS ORDERED: Labetalol IV 5 MG/ML 20 ml VIAL IV PUSH ONE (17:06)
[2023-11-13] MEDS: HYDROmorphone 0.5 MG/0.5 ML SYRINGE IV PRN (17:09)
[2023-11-13] MEDS ORDERED: hydrALAZINE 20 mg/ml 1 ML Vial IV IV SLOW PU ONE (17:09)
[2023-11-14] MEDS: Heparin 5000 UNITS/ML 1 mL VIAL SUBCUT SCH ×3 (05:42→23:06)
[2023-11-14] MEDS: Levothyroxine 100 MCG/5 ML VIAL IV SCH (05:45)
[2023-11-14 06:17] LABS: ABS Lymphocytes 0.7 10^3/uL (1.0-4.8); ABS Monocytes 0.7 10^3/uL (0.0-1.1); ABS Neutrophils 10.8 10^3/uL (1.5-7.6); ABS Nucleated RBC 0.01 10^3/ul; Eosinophil % 0.3 %; Hematocrit 36.3 % (38-53); Lymphocyte % 5.5 %; Mean Corpuscular Hemoglobin 31.2 pg (27-33); Mean Corpuscular Hgb Conc 33.1 g/dL (31-36); Mean Corpuscular Volume 94.1 fL (80-97); Mean Platelet Volume 8.2 fL (7.5-11.2); Nucleated Red Blood Cells % 0.1 %/100WBC (0.0-0.8); Platelet Count 260 10^3/uL (150-450); Red Blood Count 3.86 10^6/uL (4.06-5.63); Red Cell Distribution Width 14.2 % (12-17); White Blood Count 12.3 10^3/uL (3.6-10.2)
[2023-11-14 06:35] LABS: Calcium 8.4 mg/dL (8.6-10.3); Creatinine, Serum 1.17 mg/dL (0.67-1.17); eGFR CKD-EPI 62.6 (>60)
[2023-11-14] MEDS: Famotidine IV 10 MG/ML 2 ml VIAL (20 mg) IV SLOW PU SCH (09:42)
[2023-11-14] MEDS: methylPREDNISolone SOD SUCC 40 mg/ml 1 ml VIAL IV SCH (09:42)
[2023-11-14] MEDS: NS 0.9% IV SCH (09:43)
[2023-11-14] MEDS: CYCLOSPORINE IV SCH (09:43)
[2023-11-14] MEDS: Insulin GLARGINE 100 un/ml 10 ml VIAL SUBCUT SCH (09:50)
[2023-11-14 11:48] LABS: C Reactive Protein 51.04 mg/L (<8.01)
[2023-11-14] MEDS ORDERED: hydrALAZINE 20 mg/ml 1 ML Vial IV IV SLOW PU PRN (12:17)
[2023-11-14] MEDS ORDERED: cefTRIAXone 1 gm/50 mL D5W 1 GM/50 ML BAG IV SCH (18:00)
[2023-11-14] MEDS ORDERED: Azithromycin 500 mg/250 ml NS 500 MG/250 ML BAG IVPB SCH (18:00)
[2023-11-14] MEDS: cefTRIAXone 1 gm/50 mL D5W 1 GM/50 ML BAG IV SCH (21:08)
[2023-11-15] MEDS: Azithromycin 500 mg/250 ml NS 500 MG/250 ML BAG IVPB SCH (00:55)
[2023-11-15] MEDS: Heparin 5000 UNITS/ML 1 mL VIAL SUBCUT SCH ×3 (07:21→13:43)
[2023-11-15] MEDS: Levothyroxine 100 MCG/5 ML VIAL IV SCH (07:21)
[2023-11-15 08:15] LABS: Calcium 8.4 mg/dL (8.6-10.3); Creatinine, Serum 1.5 mg/dL (0.67-1.17); Magnesium 2.3 mg/dL (1.9-2.7); Potassium 4.1 mmol/L (3.5-5.0); eGFR CKD-EPI 46.5 (>60)
[2023-11-15] MEDS: Famotidine IV 10 MG/ML 2 ml VIAL (20 mg) IV SLOW PU SCH (08:24)
[2023-11-15] MEDS: methylPREDNISolone SOD SUCC 40 mg/ml 1 ml VIAL IV SCH (08:24)
[2023-11-15 08:26] LABS: Hematocrit 35.5 % (38-53); Hemoglobin 11.9 g/dL (13.2-16.3); Mean Corpuscular Hemoglobin 32.2 pg (27-33); Mean Corpuscular Hgb Conc 33.4 g/dL (31-36); Mean Corpuscular Volume 96.3 fL (80-97); Mean Platelet Volume 8.7 fL (7.5-11.2); Platelet Count 226 10^3/uL (150-450); Red Blood Count 3.69 10^6/uL (4.06-5.63); Red Cell Distribution Width 14.7 % (12-17); White Blood Count 7.8 10^3/uL (3.6-10.2)
[2023-11-15] MEDS ORDERED: Insulin GLARGINE 100 un/ml 10 ml VIAL SUBCUT SCH (09:00)
[2023-11-15] MEDS ORDERED: CYCLOSPORINE IV SCH (14:30)
[2023-11-15] MEDS ORDERED: NS 0.9% IV SCH (14:30)
[2023-11-15] MEDS: NS 0.9% IV SCH (15:15)
[2023-11-15] MEDS: CYCLOSPORINE IV SCH (15:15)
[2023-11-15] MEDS ORDERED: Haloperidol 5 mg/ml SDV IV/IM 5 MG/ML AMP IV SLOW PU ONE (21:20)
[2023-11-16] MEDS: cefTRIAXone 1 gm/50 mL D5W 1 GM/50 ML BAG IV SCH (00:35)
[2023-11-16] MEDS: Azithromycin 500 mg/250 ml NS 500 MG/250 ML BAG IVPB SCH (01:26)
[2023-11-16] MEDS: Heparin 5000 UNITS/ML 1 mL VIAL SUBCUT SCH ×3 (01:27→14:34)
[2023-11-16] MEDS: Levothyroxine 100 MCG/5 ML VIAL IV SCH (06:54)
[2023-11-16 08:58] LABS: Hematocrit 35.5 % (38-53); Hemoglobin 11.9 g/dL (13.2-16.3); Mean Corpuscular Hemoglobin 31.7 pg (27-33); Mean Corpuscular Hgb Conc 33.7 g/dL (31-36); Mean Corpuscular Volume 94.1 fL (80-97); Mean Platelet Volume 8.7 fL (7.5-11.2); Platelet Count 252 10^3/uL (150-450); Red Blood Count 3.77 10^6/uL (4.06-5.63); Red Cell Distribution Width 14.5 % (12-17); White Blood Count 5.8 10^3/uL (3.6-10.2)
[2023-11-16 09:12] LABS: Calcium 8.7 mg/dL (8.6-10.3); Creatinine, Serum 1.37 mg/dL (0.67-1.17); Magnesium 2.2 mg/dL (1.9-2.7); Potassium 3.9 mmol/L (3.5-5.0); eGFR CKD-EPI 51.8 (>60)
[2023-11-16] MEDS ORDERED: NS 0.9% 1000 ml BAG 1,000 ML IV SCH (09:45)
[2023-11-16] MEDS: methylPREDNISolone SOD SUCC 40 mg/ml 1 ml VIAL IV SCH (10:35)
[2023-11-16] MEDS: Famotidine IV 10 MG/ML 2 ml VIAL (20 mg) IV SLOW PU SCH (10:39)
[2023-11-16] MEDS: CYCLOSPORINE IV SCH (10:40)
[2023-11-16] MEDS: NS 0.9% IV SCH (10:40)
[2023-11-16 14:41] VITALS: BP 170/67
[2023-11-16] MEDS ORDERED: Morphine ORAL CONCENTRATE 5 MG/0.25 ML ORAL.SYRIN SL PRN ×2 (15:16→18:43)
== END 2023-11-17 13:00 | disposition hospice, inpatient (51) | DRG 70 ==
LOC: ED 11:41 → EDHOLD 11:41 → SUATTDRO 19:26 → MED 21:41 → SUATTDRO 11-12 09:00
PROVIDERS: ADMIT Student in an Organized Health Care Education/Training Program; ATTEND Internal Medicine